=== PATIENT | female | born 1965 ===

== ENCOUNTER 2018-03-19 07:39 | Day surgery (SDC) | payer OTHER ==
[~2018-03-19 07:39] MED LIST: LEVSIN0.125 MG PO; SYNTHROID150 MCG PO
== END 2018-03-19 12:50 | disposition home or self-care (01) ==
LOC: AMB-ENDOS 07:39
DX: K52.89 Other specified noninfective gastroenteritis and colitis (principal); K64.1 Second degree hemorrhoids; Z12.11 Encounter for screening for malignant neoplasm of colon